=== PATIENT | female | born 1995 | race Caucasian/White ===

== ENCOUNTER 2019-02-12 20:31 | Emergency (ER) | payer OTHER ==
--- NOTE | 2019-02-12 20:48 | ER Document Report ---
ED Medical Screen (RME) - General Chief Complaint: Post Problem Stated Complaint: BLEEDING Time Seen by Provider: 02/12/19 20:43 Mode of Arrival: Ambulatory Information source: Patient TRAVEL OUTSIDE OF THE [place] IN LAST 30 DAYS: No - HPI Patient complains to provider of: bleeding Notes: 02/12/19 20:47 Patient here with complaints of vaginal bleeding. The patient had twins at approximately 34 weeks via spontaneous vaginal delivery at [facility] 2 weeks ago. Today she stood up and started to have some heavy vaginal bleeding. She states that she has to change her pad every hour. She is been passing large clots. She went to [facility] and was there for 3 hours and was not evaluated so she came here. No chest pain or shortness of breath. No dizziness. No syncope. She states that she also lost about 1000 mL's of blood during the delivery. She denies any other complaints at this time. Exam Nontoxic-appearing, no distress. Lungs clear and equal throughout. Heart sounds normal. Plan CBC, CMP, coags, type and screen, pelvic ultrasound. An initial examination was made on the patient as part of the triage process, and it was determined a more comprehensive evaluation was necessary. Initial labs were ordered and patient was transferred to another provider in the ED who assumed care and finished evaluation and plan. Physical Exam - Vital signs Vitals: Temp Pulse Resp BP Pulse Ox 98.4 F 84 16 129/88 H 100 02/12/19 20:43 02/12/19 20:43 02/12/19 20:43 02/12/19 20:43 02/12/19 20:43 Course - Vital Signs Vital signs: Temp Pulse Resp BP Pulse Ox 98.4 F 84 16 129/88 H 100 02/12/19 20:43 02/12/19 20:43 02/12/19 20:43 02/12/19 20:43 02/12/19 20:43
[2019-02-12 22:03] LABS: ABSOLUTE EOSINOPHILS # (AUTO) 0.2 10^3/uL (0.0-0.6); ABSOLUTE LYMPHOCYTES (AUTO) 1.6 10^3/uL (0.5-4.7); ABSOLUTE MONOCYTES (AUTO) 0.6 10^3/uL (0.1-1.4); ABSOLUTE NEUT (AUTO) 6.7 10^3/uL (1.7-8.2); BASOPHILS % (AUTO) 0.5 % (0-2); EOSINOPHILS % (AUTO) 2.2 % (0-6); HEMATOCRIT 35.8 % (36.0-47.0); HEMOGLOBIN 11.9 g/dL (12.0-15.5); LYMPHOCYTES % (AUTO) 17.1 % (13-45); MEAN CORPUSCULAR HEMOGLOBIN 29.4 pg (27.0-33.4); MEAN CORPUSCULAR HGB CONC 33.2 g/dL (32.0-36.0); MEAN CORPUSCULAR VOLUME 89 fl (80-97); MONOCYTES % (AUTO) 6.6 % (3-13); PLATELET COUNT 282 10^3/uL (150-450); RED BLOOD COUNT 4.05 10^6/uL (3.72-5.28); RED CELL DISTRIBUTION WIDTH 15.6 % (11.5-14.0); SEGMENTED NEUTROPHILS % (AUTO) 73.6 % (42-78); TOTAL CELLS COUNTED % (AUTO) 100 %; WHITE BLOOD COUNT 9.1 10^3/uL (4.0-10.5)
--- NOTE | 2019-02-12 22:04 | RADIOLOGY REPORT (SQ) ---
EXAM DESCRIPTION: US PELVIS COMPLETED DATE/TME: 02/12/2019 20:45 CLINICAL HISTORY: 2 WEEKS POST BLEEDING COMPARISON: None. FINDINGS: There is a 1.9 x 1.3 cm echogenic structure at the level of the endometrial cavity with peripheral flow worrisome for retained placental tissue. Endometrial polyp is a consideration. There is a small amount of fluid in the endometrial cavity. The right ovary measured 2.6 x 1.5 x 1.7 cm. The left ovary measures 1.9 x 1.1 x 1.1 cm. There is no sonographic evidence of ovarian torsion. There is no adnexal mass. There is no free fluid in the pelvis. IMPRESSION: 1.9 x 1.3 cm echogenic structure at the level of the endometrial cavity with peripheral flow worrisome for retained placental tissue. Endometrial polyp is a consideration.
[2019-02-12 22:08] LABS: INTERNATIONAL RATION (INR) 0.95; PARTIAL THROMBOPLASTIN TIME 29.2 SEC (23.5-35.8); PROTHROMBIN TIME 13.2 SEC (11.4-15.4)
[2019-02-12 22:18] LABS: ALANINE AMINOTRANSFERASE 20 U/L (9-52); ALBUMIN 3.8 g/dL (3.5-5.0); ALKALINE PHOSPHATASE 67 U/L (38-126); ANION GAP 8 (5-19); ASPARTATE AMINO TRANSFERASE 18 U/L (14-36); BILIRUBIN,DIRECT 0.2 mg/dL (0.0-0.4); BILIRUBIN,TOTAL 0.4 mg/dL (0.2-1.3); BLOOD UREA NITROGEN 11 mg/dL (7-20); CALCIUM 9.5 mg/dL (8.4-10.2); CARBON DIOXIDE 27 mmol/L (22-30); CHLORIDE 106 mmol/L (98-107); GLUCOSE 85 mg/dL (75-110); POTASSIUM 3.7 mmol/L (3.6-5.0); SODIUM 141.2 mmol/L (137-145); TOTAL PROTEIN 6.7 g/dL (6.3-8.2)
[2019-02-12] MEDS ORDERED: MISOPROSTOL 0.1 MG TABLET PR ONE (23:25)
[2019-02-12] MEDS ORDERED: MISOPROSTOL 0.2 MG TABLET PR ONE (23:37)
--- NOTE | 2019-02-13 00:36 | ER Document Report ---
ED General - General Chief Complaint: Post Problem Stated Complaint: BLEEDING Time Seen by Provider: 02/12/19 20:43 Mode of Arrival: Ambulatory TRAVEL OUTSIDE OF THE [place] IN LAST 30 DAYS: No - HPI Notes: Patient is a 23-year-old female, 2 weeks status post spontaneous vaginal delivery of twins, who presents to the emergency department for evaluation of vaginal bleeding. She states that she was breast-feeding earlier, stood up and started having extremely heavy vaginal bleeding. She states she is going through 1-2 pads every hour. She initially went to [facility], where she had delivered. They told her it would be at least another hour until she could be b rought back for evaluation so she presents here. She denies any dizziness. She states her bleeding is slowed somewhat, but continues to pass large clots. Said no fevers or chills. No nausea or vomiting. She states she did lose a proximally 1 L of blood with her . - Related Data Allergies/Adverse Reactions: No Known Allergies Allergy (Unverified 02/12/19 23:42) Past Medical History - General Information source: Patient - Social History Smoking Status: Never Smoker Family History: Reviewed & Not Pertinent Patient has suicidal ideation: No Patient has homicidal ideation: No Renal/ Medical History: Denies: Hx Peritoneal Dialysis Review of Systems - Review of Systems Constitutional: No symptoms reported EENT: No symptoms reported Cardiovascular: No symptoms reported Respiratory: No symptoms reported Gastrointestinal: No symptoms reported Genitourinary: No symptoms reported Female Genitourinary: See HPI Musculoskeletal: No symptoms reported Skin: No symptoms reported Neurological/Psychological: No symptoms reported Physical Exam - Vital signs Vitals: Temp Pulse Resp BP Pulse Ox 98.4 F 84 16 129/88 H 100 02/12/19 20:43 02/12/19 20:43 02/12/19 20:43 02/12/19 20:43 02/12/19 20:43 - Notes Notes: Vital signs reviewed, please refer to chart. Patient is normocephalic, atraumatic. Pupils equal round, reactive to light. Neck is supple without meningismus. Heart is regular rate and rhythm. Lungs are clear to auscultation bilaterally. Abdomen is soft, nontender, normoactive bowel sounds throughout. Extremities without cyanosis, clubbing, edema. Pelvic exam is performed. Patient has a moderate amount of bleeding noted. I was able to visualize the cervix, which did not have any obvious defects, but the cervical loss was obscured by multiple blood clots. Uterus was boggy, moderate tenderness. Course - Re-evaluation Re-evalutation: 02/13/19 00:34 Patient presents to the emergency department for evaluation of vaginal bleeding after a spontaneous vaginal delivery. Initial laboratory investigations and imaging as ordered through triage. Hemoglobin was 11.9, unremarkable given patient's current recent blood loss. Ultrasound did reveal findings consistent with potential retained placenta. Endometrial polyp was also on the differential. This was discussed with the patient. She denies any known history of endometrial polyp. I spoke with Dr. Nichols, DIVISION ORDER TECHNICIAN on-call. She has that the patient be administered Cytotec, 1000 mcg per rectum to slow bleeding. She will review ultrasound imaging and follow-up. Patient received medication, will continue to monitor. 02/13/19 01:56 Patient monitored here for some time. Bleeding improved. She seemed to tolerate Cytotec well. I spoke to Dr. nichols again. She states that she can expect some cramping, but hopefully bleeding will slow with the Cytotec. It is likely that it will induce passage of any retained products. I discussed this with the patient. She actually has an appointment with her OB tomorrow morning for blood pressure follow-up. She is advised to relate to them findings here. She voiced understanding to this and will be discharged. - Vital Signs Vital signs: Temp Pulse Resp BP Pulse Ox 98.4 F 84 16 129/88 H 100 02/12/19 20:43 02/12/19 20:43 02/12/19 20:43 02/12/19 20:43 02/12/19 20:43 - Laboratory Result Diagrams: 02/12/19 21:50 02/12/19 21:50 Laboratory results interpreted by me: 02/12/19 02/12/19 21:50 21:50 Hgb 11.9 L Hct 35.8 L RDW 15.6 H Creatinine 0.51 L - Diagnostic Test Radiology results interpreted by me: 02/13/19 01:57 Pelvis Ultrasound 02/12/19 20:45 IMPRESSION: 1.9 x 1.3 cm echogenic structure at the level of the endometrial cavity with peripheral flow worrisome for retained placental tissue. Endometrial polyp is a consideration. Discharge - Discharge Clinical Impression: Abnormal uterine bleeding, Condition: Stable Disposition: HOME, SELF-CARE Additional Instructions: Your ultrasound here was worrisome for possible retained placenta. You have been given 1 mg of Cytotec rectally. Follow-up with your OB as scheduled tomorrow morning. If you develop worsened bleeding, or any other new or concerning symptoms, return immediately to the emergency department for reevaluation.
[2019-02-13 02:16] VITALS: BP 123/69
== END 2019-02-13 02:16 | disposition home or self-care (01) ==
LOC: ER 20:31
DX: O72.2 Delayed and secondary postpartum hemorrhage (principal)
CPT/HCPCS: 36415; 76856; 80053; 85025; 85610; 85730; 86850; 86900; 86901; 93976; 99284